=== PATIENT | male | born 1990 | race Caucasian/White ===

== ENCOUNTER 2016-09-16 13:11 | Outpatient (CLI) | payer OTHER ==
[2016-09-16] MEDS ORDERED: BUFFERED LIDOCAINE 10 ML SYRINGE IU ONE (15:01)
[2016-09-16] MEDS ORDERED: GADOPENTETATE DIMEGLUMINE 5 ML VIAL IVP ONE (15:01)
[2016-09-16] MEDS ORDERED: IOTHALAMATE MEGLUMINE 50 ML VIAL IVP ONE (15:01)
[2016-09-16] MEDS ORDERED: LIDOCAINE 1% 50 ML MDV SUBQ ONE (15:06)
== END 2016-09-16 13:12 | disposition home or self-care (01) ==
DX: M25.511 Pain in right shoulder (principal); S46.211A Strain of muscle, fascia and tendon of other parts of biceps, right arm, initial encounter
CPT/HCPCS: 23350; 73222; 77002; Q9961